=== PATIENT | female | born 1965 | race Two or more races ===

== ENCOUNTER 2022-08-29 06:50 | Emergency (ER) | payer BC ==
[~2022-08-29] VITALS: Ht 165.1 cm; Wt 59.0 kg
--- NOTE | 2022-08-29 07:31 | NUR ---
urine sample collected and sent to lab
[2022-08-29 08:17] LABS: BILIRUBIN,URINE NEGATIVE (NEGATIVE); COLOR,URINE YELLOW (YELLOW); LEUKOCYTE ESTERASE ,URINE 2+ (NEGATIVE); NITRITE, URINE NEGATIVE (NEGATIVE); PROTEIN,URINE NEGATIVE (NEGATIVE); UGLUCOSE NEGATIVE (NEGATIVE); UROBILINOGEN,URINE 0.2 EU/dL (0.2)
[2022-08-29 08:28] LABS: BACTERIA,URINE Moderate /HPF (None Seen); SQUAMOUS EPITHELIAL CELL,UR Few /HPF (None Seen); WBC,URINE 21-50 /HPF (0-3)
[2022-08-29] MEDS ORDERED: PHEN-704 PO (08:47)
[2022-08-29] MEDS ORDERED: IBUP-1955 PO (08:47)
[2022-08-29] MEDS ORDERED: NITR100C6 PO (08:47)
--- NOTE | 2022-08-29 08:56 | NUR ---
Patient discharged to home in stable condition. Written and verbal after care instructions given. Patient verbalizes understanding of instruction.
[2022-08-29 08:58] VITALS: BP 109/62
== END 2022-08-29 08:59 | disposition home or self-care (01) ==
LOC: ER 06:52
DX: N39.0 Urinary tract infection, site not specified (principal); R30.0 Dysuria; R10.2 Pelvic and perineal pain
CPT/HCPCS: 81001; 87086-TC